=== PATIENT | female | born 1955 ===

== ENCOUNTER → 2016-11-25 | Outpatient (CLI) | payer OTHER ==
[~2016-11-25] MED LIST: LEVE1TAB57 PO; LEVO150T PO; LISI-729 PO; OMEP40CA41 PO; OXYC20TA50 PO; OXYSR/10; TRAZ50TA35 PO; VENL75CA73 PO; WARF4TAB44 PO; [UNRECOGNIZED DRUG - CODE] SQ
[2016-11-25 18:21] LABS: FERRITIN 24.1 ng/ml (8.0-388.0)
== END | disposition home or self-care (01) ==
LOC: C.LABMFLN 15:30
PROVIDERS: ATTEND Internal Medicine Hematology
DX: R71.8 Other abnormality of red blood cells (principal)